=== PATIENT | female | born 1995 | race Caucasian/White ===

== ENCOUNTER 2019-10-11 09:29 | Emergency (ER) | payer OTHER ==
--- NOTE | 2019-10-11 10:23 | ED Physician Documentation ---
PD HPI LOWER EXT INJURY - Stated complaint Stated Complaint: RT TOE PX - Chief complaint Chief Complaint: Ext Problem - History obtained from History obtained from: Patient - History of Present Illness PD HPI LOW EXT INJURY LOCATION: Right, Toe Type of injury: Blunt / blow (stubbed right middle toe on bed footing last night.) Where injury occurred: Home Timing - onset: Last night Timing - details: Abrupt onset, Still present (toe is bruised and tender. It was hurting too much to put her work boots on.) Worsened by: Moving, Palpating Associated symptoms: Swelling, Discolored (bruised). No: Weakness, Numbness Similar symptoms before: Has not had sx before Review of Systems Skin: denies: Abrasion (s), Laceration (s) Neurologic: denies: Focal weakness, Numbness PD PAST MEDICAL HISTORY - Past Medical History Past Medical History: No - Present Medications Home Medications: Ambulatory Orders Medication Instructions Recorded Confirmed No Known Home Medications 10/11/19 10/11/19 - Allergies Allergies/Adverse Reactions: Allergies Allergy/AdvReac Type Severity Reaction Status Date / Time No Known Drug Allergies Allergy Verified 10/11/19 09:43 PD ED PE NORMAL - Vitals Vital signs reviewed: Yes - General General: Alert and oriented X 3, No acute distress, Well developed/nourished - Derm Derm: Normal color, Warm and dry - Extremities Extremities: Other (right middle toe with swelling and bruising. No obvious deformity. normal sensation at tip. Able to flex and extend but hurts. ) Results - Vitals Vitals: Vital Signs - 24 hr 10/11/19 10/11/19 09:41 11:32 Temperature 36 C L 36.9 C Heart Rate 63 80 Respiratory 16 18 Rate Blood Pressure 142/88 H 143/82 H O2 Saturation 99 99 Oxygen O2 Source Room air - Rads (name of study) toes Radiology: Prelim report reviewed (no fractures), See rad report PD MEDICAL DECISION MAKING - ED course Complexity details: reviewed results, considered differential, d/w patient Departure - Departure Disposition: 01 Home, Self Care Clinical Impression: Toe contusion Qualifiers: Encounter type: initial encounter Toe: lesser toe Damage to nail status: without damage Laterality: right Qualified Code(s): S90.121A - Contusion of right lesser toe(s) without damage to nail, initial encounter Condition: Stable Record reviewed to determine appropriate education?: Yes Instructions: ED Contusion Lower Ext Follow-Up: THERESA ADRIAN MD [Primary Care Provider] - Comments: No fractures seen on x-ray. Use an easier soft tissue or the firm open toed shoe for the next few days until the swelling and tenderness improved. Tylenol or ibuprofen if needed for pains. I wrote a note for no work boot for 3 days. Recheck if not improved well over the next several days. Forms: Activity restrictions Discharge Date/Time: 10/11/19 11:55
[2019-10-11] MEDS ORDERED: IBUPROFEN 600 MG TABLET PO STA (10:38)
--- NOTE | 2019-10-11 11:29 | XRAY Report ---
Reason: stubbed middle toes last night Procedure Date: 10/11/2019 Accession Number: [id number] / [id number] Procedure: XR - Toe(s) RT CPT Code: Final Report FULL RESULT: EXAM: RIGHT TOE RADIOGRAPHY EXAM DATE: 10/11/2019 11:21 AM. CLINICAL HISTORY: Stubbed middle toes last night. Third toe. Swelling and bruising today. COMPARISON: None. TECHNIQUE: 3 views. FINDINGS: Bones: Normal. No fracture or bone lesion. Joints: Normal. No subluxations. Soft Tissues: No radiopaque foreign body or soft tissue gas is seen. IMPRESSION: No acute fracture or dislocation detected. [facility]
[2019-10-11 11:33] VITALS: BP 143/82
== END 2019-10-11 11:55 | disposition home or self-care (01) ==
LOC: ED 09:29
DX: S90.121A Contusion of right lesser toe(s) without damage to nail, initial encounter (principal); W22.03XA Walked into furniture, initial encounter; Y92.003 Bedroom of unspecified non-institutional (private) residence as the place of occurrence of the external cause
CPT/HCPCS: 73660; 99283; A9270